=== PATIENT | female | born 1955 | race Caucasian/White ===

== ENCOUNTER 2016-10-12 13:35 | Emergency (ER) | payer OTHER ==
[2016-10-12 13:43] VITALS: BP 133/80; PULSE 77; TEMP 97.9; BMI 31.7
--- NOTE | 2016-10-12 14:33 | PDOC ---
History of Present Illness - General Chief Complaint: Edema Stated Complaint: COUGH (PCP SENT) Time Seen by Provider: 10/12/16 14:21 History Source: Patient Exam Limitations: No Limitations - History of Present Illness Initial Comments: 10/12/16 14:29 60 yr female history of fibromyalgia, asthma, htn, left shoulder surgery in presents with one week swelling and pain to left lower leg. Pt denies traUMA , DENIES ANY RECENT TRAVEL OR SURGERY. Occurred: reports: last week Severity: Yes: mild, moderate Lower Ext. Injury Location - Specific Injury Location Legs: left: pain, swelling (left calf ) Past History - Past Medical History Allergies/Adverse Reactions: Allergies Allergy/AdvReac Type Severity Reaction Status Date / Time codeine AdvReac Verified 10/12/16 13:38 Asthma: Yes HTN: Yes Other medical history: fibromyalgia - Surgical History Cholecystectomy: Yes Orthopedic Surgery: Yes (left shoulder ) - Psycho/Social/Smoking Cessation Hx Suicidal Ideation: No Smoking History: Never smoked Review of Systems - Review of Systems Able to Perform ROS?: Yes Is the patient limited Kazakh proficient: No Constitutional: No: Symptoms Reported HEENTM: No: Symptoms Reported Respiratory: No: Symptoms reported Cardiac (ROS): No: Symptoms Reported ABD/GI: No: Symptoms Reported : No: Symptoms Reported Musculoskeletal: Yes: See HPI *Physical Exam - Vital Signs Last Vital Signs Temp Pulse Resp BP Pulse Ox 97.9 F 77 18 133/80 99 10/12/16 13:38 10/12/16 13:38 10/12/16 13:38 10/12/16 13:38 10/12/16 13:38 - Physical Exam General Appearance: Yes: Nourished, Appropriately Dressed HEENT: positive: EOMI, FRANKIE Neck: positive: Supple. negative: Tender Respiratory/Chest: positive: Lungs Clear, Normal Breath Sounds Cardiovascular: positive: Regular Rhythm, Regular Rate Musculoskeletal: positive: Normal Inspection Extremity: positive: Normal Capillary Refill, Swelling, Calf Tenderness Integumentary: positive: Normal Color, Dry, Warm ED Treatment Course - RADIOLOGY Radiology Studies Ordered: Category Date Time Status DUPLEX VASCUL US-1 LEG [US] Stat Ultrasound 10/12/16 14:28 Ordered Medical Decision Making - Medical Decision Making 10/12/16 14:32 cc: left calf pain, swelling for one week will r/o DVT 10/13/16 08:37 results of US discussed with patient.. a copy of the report has been given so she can follow with her PMD at [facility]. pt understands the dc plan all dc inst verbally given. *DC/Admit/Observation/Transfer Diagnosis at time of Disposition: Murillo's cyst of knee Qualifiers: Laterality: left Qualified Code(s): M71.22 - Synovial cyst of popliteal space [ Murillo], left knee - Discharge Dispostion Disposition: HOME Condition at time of disposition: Good - Referrals Referrals: Jorge Silveira DO [Primary Care Provider] - Juarez Wellington MD [Staff Physician] - - Patient Instructions Additional Instructions: follow with the orthopedist next week elevate the leg and apply warm compresses behind the knee every 3hrs for 20 minutes take motrin or advil or ibupropfen for pain return if any worsening symptoms
== END 2016-10-12 16:24 | disposition home or self-care (01) ==
LOC: JERFT 13:35
DX: M71.22 Synovial cyst of popliteal space [Baker], left knee (principal); I10 Essential (primary) hypertension; M79.7 Fibromyalgia; J45.909 Unspecified asthma, uncomplicated
CPT/HCPCS: 93971-TC; 99281-25